=== PATIENT | female | born 1975 | race Caucasian/White ===

== ENCOUNTER 2017-01-26 16:58 | Emergency (ER) | payer SELFPAY ==
[~2017-01-26] VITALS: Ht 167.6 cm; Wt 114.8 kg
[2017-01-26] MEDS ORDERED: LORazepam 2 MG/ML (ATIVAN) 1 ML VIAL IM ONE (17:35)
[2017-01-26] MEDS ORDERED: ALBUTEROL/IPRATROPIUM 3MG-0.5MG/3ML (DUONEB) NEB VIAL INH ONE (17:35)
[2017-01-26] MEDS ORDERED: ED- BENZONATATE 100MG (TESSALON) 6 CAPSULES/BTL PO ONE (17:35)
[2017-01-26] MEDS ORDERED: methylPREDNISolone 125 MG (Solu-MEDROL) VIAL IM ONE (17:35)
[2017-01-26] MEDS ORDERED: AZITHROMYCIN 250 MG TAB (ZITHROMAX) PO ONE (17:35)
[2017-01-26] MEDS ORDERED: ED- ALBUTEROL HFA (VENTOLIN HFA) 8 GM INHALER IH ONE (17:35)
[2017-01-26] MEDS ORDERED: BENZONATATE 100 MG (TESSALON) CAPSULE PO ONE (17:35)
[2017-01-26] MEDS ORDERED: HYDROmorphone 1 MG/ML (DILAUDID) SYRINGE IM ONE (17:35)
[2017-01-26] MEDS ORDERED: ONDANSETRON 4 MG (ZOFRAN) ORAL DISSOLVE TAB PO ONE (17:35)
[2017-01-26 18:20] VITALS: BP 120/61
== END 2017-01-26 18:20 | disposition home or self-care (01) ==
LOC: ED 17:02
DX: J20.9 Acute bronchitis, unspecified (principal)
CPT/HCPCS: 94640; 96372; 99282; J1170; J2060; J2930; 99283